=== PATIENT | female | born 1965 | race Caucasian/White ===

== ENCOUNTER → 2020-09-28 | Outpatient (CLI) | payer BC ==
[~2020-09-28] MED LIST: IBUPROFEN800 MG PO; PROAIR DIGIHAL90 MCG INH; ZOFRAN ODT 4 MG4 MG PO
== END ==
LOC: EXRD 08:45
DX: R10.10 Upper abdominal pain, unspecified (principal); R16.0 Hepatomegaly, not elsewhere classified
CPT/HCPCS: 76705

== ENCOUNTER → 2020-10-24 | Outpatient (CLI) | payer BC | LOC: NM 09:00 | DX: R10.10 Upper abdominal pain, unspecified (principal) | CPT/HCPCS: 78227; A9537; J2785; J2805 ==

== ENCOUNTER 2020-11-14 11:55 | Emergency (ER) | payer BC ==
[2020-11-14 13:10] LABS: HEMOGLOBIN 14.1 gm/dl (12.3-15.3); RED BLOOD COUNT 4.85 M/UL (4.00-5.10); WHITE BLOOD COUNT 6.5 K/UL (4.5-11.0)
[2020-11-14 13:42] LABS: BUN/CREATININE RATIO 13 (0-10)
[2020-11-14] MEDS ORDERED: ZOFRAN ODT 4 MG4 MG PO (16:36)
[2020-11-14] MEDS ORDERED: PROAIR DIGIHAL90 MCG INH (16:36)
[2020-11-14] MEDS ORDERED: IBUPROFEN800 MG PO (16:36)
== END 2020-11-14 17:26 | disposition home or self-care (01) ==
LOC: ER1 11:55
PROVIDERS: Emergency Medicine
DX: U07.1 COVID-19 (principal)
CPT/HCPCS: 71045; 80053; 81001; 82550; 82553; 83605; 83615; 84484; 85025; 85379; 85610; 85730; 93005; 94664; 99285; Q9967